=== PATIENT | male | born 1965 | race Caucasian/White ===

== ENCOUNTER 2019-06-05 14:03 | Emergency (ER) | payer MEDICARE, OTHER ==
[~2019-06-05] VITALS: Ht 172.7 cm; Wt 131.5 kg
[2019-06-05 14:07] VITALS: BP 130/72
--- NOTE | 2019-06-05 15:32 | NUR ---
PT AMBULATED TO ER BED 04
--- NOTE | 2019-06-05 15:33 | NUR ---
Note undone in EDM - 06/05/19 at 1535 by [email or web address] BIB FAMILY C/O DIZZINESS AND LIGHTHEADED, HEADACHE X LAST NIGHT. -CP, -SOB, -N/V/D PMH- SCHIZO, HTN, HIGH CHOLESTEROL. DENIES N/V/D; SKIN IS PINK/WARM/DRY; AAOX4 WITH EVEN AND STEADY GAIT; LUNGS CLEAR BL; HR EVEN AND REGULAR; PT DENIES ANY FEVER, CP, SOB, OR COUGH AT THIS TIME; PATIENT STATES PAIN OF 0/10 AT THIS TIME; PATIENT POSITIONED FOR COMFORT; HOB ELEVATED; BEDRAILS UP X2; BED DOWN. ER MD MADE AWARE OF PT STATUS.
--- NOTE | 2019-06-05 15:33 | NUR ---
BIB FAMILY C/O DIZZINESS AND LIGHTHEADED, HEADACHE X LAST NIGHT. PMH- SCHIZO, HTN, HIGH CHOLESTEROL. DENIES N/V/D; SKIN IS PINK/WARM/DRY; AAOX4 WITH EVEN AND STEADY GAIT; LUNGS CLEAR BL; HR EVEN AND REGULAR; PT DENIES ANY FEVER, CP, SOB, OR COUGH AT THIS TIME; PATIENT STATES PAIN OF 0/10 AT THIS TIME; PATIENT POSITIONED FOR COMFORT; HOB ELEVATED; BEDRAILS UP X2; BED DOWN. ER MD MADE AWARE OF PT STATUS.
--- NOTE | 2019-06-05 15:34 | NUR ---
Patient being evaluated by DR VALDES at bedside.
--- NOTE | 2019-06-05 15:44 | NUR ---
PT TAKEN TO RADIOLOGY DEPARTMENT
--- NOTE | 2019-06-05 16:15 | NUR ---
LAB AT BEDSIDE
[2019-06-05 16:29] LABS: BASOPHILS % (AUTO) 0.3 % (0.0-2.0); EOSINOPHILS # (AUTO) 0.1 K/uL (0-0.4); EOSINOPHILS % (AUTO) 0.7 % (0.0-4.0); HEMATOCRIT 33.7 % (36-52); HEMOGLOBIN 11.4 g/dL (12.0-18.0); LYMPHOCYTES # (AUTO) 1.6 K/uL (2.0-11.5); LYMPHOCYTES % (AUTO) 22.2 % (20.5-51.1); MEAN CORPUSCULAR HEMOGLOBIN 31 pg (27-31); MEAN CORPUSCULAR HGB CONC 34 g/dL (33-37); MEAN CORPUSCULAR VOLUME 91.2 fL (80-94); MONOCYTES # (AUTO) 0.4 K/uL (0.8-1.0); MONOCYTES % (AUTO) 6.1 % (1.7-9.3); NEUTROPHILS # (AUTO) 5.1 K/uL (1.8-7.7); NEUTROPHILS % (AUTO) 70.7 % (42.2-75.2); PLATELET COUNT (AUTO) 252 K/uL (140-450); RED BLOOD CELL COUNT(AUTO) 3.69 MIL/uL (4.20-6.10); RED CELL DISTRIBUTION WIDTH 14.3 % (11.6-13.7); WHITE BLOOD COUNT (AUTO) 7.2 K/uL (4.8-10.8)
[2019-06-05 16:55] LABS: ALBUMIN 3.1 g/dL (3.4-5.0); CARBON DIOXIDE 27.1 mmol/L (21-32); CREATININE 1.3 mg/dL (0.7-1.3); TOTAL BILIRUBIN 0.4 mg/dL (0.0-1.0)
[2019-06-05 16:56] LABS: ANION GAP 12.1 (8-16); POTASSIUM 4.2 mmol/L (3.5-5.1)
[2019-06-05 17:37] LABS: CREATINE KINASE MB 0.6 ng/mL (0-3.6)
[2019-06-05 18:00] VITALS: BP 129/62
--- NOTE | 2019-06-05 18:00 | NUR ---
Patient discharged with v/s stable. Written and verbal after care instructions given and explained. Patient verbalized understanding. Ambulatory with steady gait. All questions addressed prior to discharge. Advised to follow up with PMD.
== END 2019-06-05 18:00 | disposition home or self-care (01) ==
LOC: MED 14:03
DX: R51 Headache (principal); I10 Essential (primary) hypertension; E78.00 Pure hypercholesterolemia, unspecified; F20.9 Schizophrenia, unspecified
CPT/HCPCS: 36415; 70450; 71045; 80053; 82550; 82553; 82948; 84484; 85025; 99284; Q0092

== ENCOUNTER 2022-06-03 15:00 | Emergency (ER) | payer MEDICARE, OTHER ==
[~2022-06-03] VITALS: Ht 177.8 cm; Wt 106.1 kg
[2022-06-03 15:17] VITALS: BP 112/62
--- NOTE | 2022-06-03 17:00 | NUR ---
NO ANSWER TO BE SEEN
--- NOTE | 2022-06-03 17:00 | NUR ---
PATIENT LEFT WITHOUT BEING SEEN BY DR. PRATT. NO FURTHER CARE PROVIDED FOR PATIENT.
--- NOTE | 2022-06-03 19:00 | NUR ---
SECOND NO ANSWER TO BE SEEN
--- NOTE | 2022-06-03 20:00 | NUR ---
MULTIPLE ATTEMPTS TO CALL TO BE SEEN, NO ANSWER
== END 2022-06-03 17:00 | disposition left against medical advice (07) ==
LOC: MED 15:00
DX: R10.9 Unspecified abdominal pain (principal); R19.7 Diarrhea, unspecified; Z53.21 Procedure and treatment not carried out due to patient leaving prior to being seen by health care provider